=== PATIENT | female | born 1965 | race Caucasian/White ===

== ENCOUNTER 2018-03-12 13:18 | Emergency (ER) | payer SELFPAY ==
[~2018-03-12 13:18] MED LIST: Lidocaine 1% w/Epinephrine 1:100K 30 ML VIAL ONE; Sterile Water Irrigation 250 ML BOT ONE
== END 2018-03-12 15:14 | disposition home or self-care (01) ==
LOC: MADERS 13:18
DX: L02.412 Cutaneous abscess of left axilla (principal); I10 Essential (primary) hypertension; F41.9 Anxiety disorder, unspecified; F31.9 Bipolar disorder, unspecified; F17.210 Nicotine dependence, cigarettes, uncomplicated
CPT/HCPCS: 10061; J2001

== ENCOUNTER 2018-10-27 07:13 | Emergency (ER) | payer SELFPAY ==
[2018-10-27] MEDS ORDERED: Ibuprofen 800 MG TAB ONE (08:13)
--- NOTE | 2018-10-27 09:23 | RAD ---
RIGHT SHOULDER 3 VIEWS: Date: 10/27/18 HISTORY: Shoulder injury. FINDINGS: No evidence of fracture or dislocation. AC joint appears normally aligned. IMPRESSION: No acute findings. POS: OFF
== END 2018-10-27 08:35 | disposition home or self-care (01) ==
LOC: MADERS 07:13
DX: S46.021A Laceration of muscle(s) and tendon(s) of the rotator cuff of right shoulder, initial encounter (principal); I10 Essential (primary) hypertension; F41.9 Anxiety disorder, unspecified; F31.9 Bipolar disorder, unspecified; F17.210 Nicotine dependence, cigarettes, uncomplicated; V18.0XXA Pedal cycle driver injured in noncollision transport accident in nontraffic accident, initial encounter

== ENCOUNTER 2019-01-05 11:47 | Emergency (ER) | payer SELFPAY ==
[2019-01-05] MEDS ORDERED: Aspirin Chewable 81 MG TAB ONE (12:20)
[2019-01-05] MEDS ORDERED: methylPREDNISolone Sod Succ/PF 125 MG/2 ML VIAL ONE (12:20)
--- NOTE | 2019-01-05 12:34 | RAD ---
RADIOGRAPH CHEST 2 VIEW: DATE: 01/05/2019 HISTORY: 53-year-old female with cough FINDINGS: The thoracic aorta is tortuous and ectatic. There is no evidence of airspace density, pulmonary edema , or pneumothorax. There is no cardiomegaly or pleural effusion. IMPRESSION: 1) No acute cardiopulmonary findings. 2) ectasia of thoracic aorta.
[2019-01-05 12:41] LABS: #Eosinphils 0.1 thou/uL (0.0-0.7); #Lymphocytes 1.5 thou/uL (1.20-3.40); #Monocytes 0.4 thou/uL (0.11-0.59); #Neutrophils 6.3 thou/uL (1.40-6.50); %Basophils 0.4 % (0.0-1.0); %Eosinophils 0.9 % (0.0-10.0); %Lymphocytes 17.6 % (21.0-51.0); %Monocytes 5.3 % (0.0-10.0); %Neutrophils 75.8 % (42.0-75.0); Hemoglobin 14.3 g/dL (12.0-16.0); Mean Corpuscular HGB CONC 33.7 g/dL (32.0-36.0); Mean Corpuscular Hemoglobin 30.3 pg (27.0-31.0); Mean Corpuscular Volume 89.8 fL (78.0-98.0); Mean Platelet Volume 6.1 fL (7.4-10.4); Platelet Count 407 thou/uL (130-400); RBC Distribution Width 12.4 % (11.5-14.5); Red Blood Cell (RBC) Count 4.72 mill/uL (4.20-5.40); White Blood Cell (WBC) Count 8.3 thou/uL (4.8-10.8)
[2019-01-05 13:01] LABS: ALT (SGPT) 44 U/L (8-55); AST (SGOT) 27 U/L (5-34); Albumin 4.2 g/dL (3.5-5.0); Alkaline Phosphatase 92 U/L (40-150); Anion Gap 16 mmol/L (10-20); BUN (Urea Nitrogen) 21 mg/dL (9.8-20.1); Bilirubin, Total 0.4 mg/dL (0.2-1.2); CK (CPK) 95 U/L (29-168); Calc. Creatinine Clearance 0 mL/min (70-130); Calcium 8.9 mg/dL (7.8-10.44); Carbon Dioxide 22 mmol/L (22-29); Chloride 103 mmol/L (98-107); Estimated GFR-MDRD 74; Globulin 3.1 g/dL (2.4-3.5); Glucose 100 mg/dL (70-105); Lipase 12 U/L (8-78); Potassium 3.4 mmol/L (3.5-5.1); Protein, Total 7.3 g/dL (6.0-8.3); Sodium 138 mmol/L (136-145)
== END 2019-01-05 13:20 | disposition home or self-care (01) ==
LOC: MADERS 11:47
DX: J20.9 Acute bronchitis, unspecified (principal); F41.9 Anxiety disorder, unspecified; F31.9 Bipolar disorder, unspecified; F17.210 Nicotine dependence, cigarettes, uncomplicated
CPT/HCPCS: 36415; 71046; 80053; 82550; 83690; 84484; 85025; 93005; 94640; 96374; J2930; J7620

== ENCOUNTER 2019-03-13 20:20 | Emergency (ER) | payer SELFPAY ==
[~2019-03-13 20:20] MED LIST changes: -Lidocaine 1% w/Epinephrine 1:100K 30 ML VIAL ONE; +Sterile Water Irrigation 1,000 ML BOT ONE
[2019-03-13] MEDS ORDERED: Lidocaine 2% w/Epinephrine 1:200K 20 ML VIAL ONE (20:28)
[2019-03-13] MEDS ORDERED: Adacel (T-DAP) 0.5 ML SYRINGE ONE (21:12)
[2019-03-13] MEDS ORDERED: Bacitracin 1 PK ONE (21:12)
[2019-03-13] MEDS ORDERED: Ibuprofen 800 MG TAB ONE (21:22)
== END 2019-03-13 21:38 | disposition home or self-care (01) ==
LOC: MADERS 20:20
DX: S81.011A Laceration without foreign body, right knee, initial encounter (principal); S90.111A Contusion of right great toe without damage to nail, initial encounter; S40.211A Abrasion of right shoulder, initial encounter; I10 Essential (primary) hypertension; F41.9 Anxiety disorder, unspecified; F31.9 Bipolar disorder, unspecified; F17.210 Nicotine dependence, cigarettes, uncomplicated; V20.4XXA Motorcycle driver injured in collision with pedestrian or animal in traffic accident, initial encounter
CPT/HCPCS: 12002; 90471; 90715; A4217

== ENCOUNTER 2019-11-08 10:21 | Emergency (ER) | payer SELFPAY ==
[~2019-11-08 10:21] MED LIST changes: +Iopamidol 370 76% 100 ML VIAL ONE; -Sterile Water Irrigation 1,000 ML BOT ONE; -Sterile Water Irrigation 250 ML BOT ONE
[2019-11-08] MEDS ORDERED: Ketorolac Tromethamine 30 MG/ML VIAL ONE (10:34)
[2019-11-08 10:55] LABS: Bilirubin Negative (Negative); Blood, Urine Negative (Negative); Clarity Hazy (Clear); Glucose, Urine (Dipstick) Negative (Negative); Leukocyte Negative (Negative); Nitrite Negative (Negative); Protein, Urine (Dipstick) 100 mg/dL (Neg-Trace); Urobilinogen 0.2 mg/dL (Less than 2)
[2019-11-08 10:57] LABS: Bacteria/HPF Rare-Few HPF (None Seen); RBC/HPF None Seen HPF (0-3); WBC/HPF 0-3 HPF (0-3)
[2019-11-08 11:00] LABS: #Basophils 0.1 thou/uL (0.0-0.2); #Lymphocytes 1.8 thou/uL (1.20-3.40); #Monocytes 0.5 thou/uL (0.11-0.59); #Neutrophils 7.3 thou/uL (1.40-6.50); %Basophils 0.8 % (0.0-1.0); %Eosinophils 0.3 % (0.0-10.0); %Lymphocytes 18.8 % (21.0-51.0); %Monocytes 4.6 % (0.0-10.0); %Neutrophils 75.5 % (42.0-75.0); Mean Corpuscular HGB CONC 33.4 g/dL (32.0-36.0); Mean Corpuscular Hemoglobin 31.1 pg (27.0-31.0); Mean Corpuscular Volume 93.1 fL (78.0-98.0); Mean Platelet Volume 6.9 fL (7.4-10.4); Platelet Count 418 thou/uL (130-400); RBC Distribution Width 11.9 % (11.5-14.5); Red Blood Cell (RBC) Count 4.51 mill/uL (4.20-5.40); White Blood Cell (WBC) Count 9.7 thou/uL (4.8-10.8)
[2019-11-08 11:05] LABS: Amphetamine Not Detected (NotDetected); Barbiturates Screen Not Detected (NotDetected); Benzodiazepine Screen Not Detected (NotDetected); Cocaine Metabolite Screen Not Detected (NotDetected); Medtox Control Line Valid? VALID (VALID); Methadone Not Detected (NotDetected); Methamphetamine Not Detected (NotDetected); Opiate Screen Detected (NotDetected); Oxycodone Screen Not Detected (NotDetected); Phencyclidine (PCP) Not Detected (NotDetected); THC/Cannabinoid Screen Not Detected (NotDetected); Tricyclic Screen Not Detected (NotDetected)
[2019-11-08 11:16] LABS: ALT (SGPT) 43 U/L (8-55); AST (SGOT) 35 U/L (5-34); Albumin 4.1 g/dL (3.5-5.0); Alkaline Phosphatase 71 U/L (40-110); Anion Gap 15 mmol/L (10-20); BUN (Urea Nitrogen) 26 mg/dL (9.8-20.1); Bilirubin, Total 0.3 mg/dL (0.2-1.2); CK (CPK) 76 U/L (29-168); Calc. Creatinine Clearance 0 mL/min (70-130); Calcium 7.8 mg/dL (7.8-10.44); Carbon Dioxide 21 mmol/L (22-29); Chloride 107 mmol/L (98-107); Estimated GFR-MDRD 85; Globulin 2.5 g/dL (2.4-3.5); Glucose 114 mg/dL (70-105); Lipase 23 U/L (8-78); Potassium 3.6 mmol/L (3.5-5.1); Protein, Total 6.6 g/dL (6.0-8.3); Sodium 139 mmol/L (136-145)
--- NOTE | 2019-11-08 11:31 | ULT ---
ULTRASOUND ABDOMEN LIMITED: (RIGHT UPPER QUADRANT) DATE: 11/08/2019 HISTORY: 54-year-old female with right upper quadrant abdominal pain with nausea and vomiting FINDINGS: Gallbladder:Tiny nonshadowing, apparently immobile 4 or 5 mm focus in proximal body of the gallbladde r. No definite gallstones. Normal wall thickness. No pericholecystic fluid or excessive luminal distention. Common duct: Not imaged. (Measured structure is a branch of the hepatic duct). Liver:Normal size and echogenicity Pancreas:No sonographic abnormality identified Right kidney:No hydronephrosis IMPRESSION: 1. Tiny gallbladder polyp. 2. No evidence of acute cholecystitis. No definitive cholelithiasis identified.
[2019-11-08] MEDS ORDERED: Ondansetron PF 4 MG/2 ML Vial ONE (12:50)
--- NOTE | 2019-11-08 13:10 | CT ---
CT ABDOMEN AND PELVIS WITH IV CONTRAST: 11/08/19 HISTORY: Abdominal pain, right upper quadrant pain. COMPARISON: 04/17/19. 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 The calcified granuloma in the right lung base i s again seen. Right lower lobe is again seen. No calcified gallstones are seen. The liver, spleen, pa ncreas, and adrenal glands are normal. Bilateral renal cysts are again seen. The 2 mm calculus in th e inferior pole of the right kidney is again seen on the coronal reconstructions. No free air, free fluid or lymphadenopathies noted in the abdomen or pelvis. There are vascular calci fications without evidence of aneurysmal dilatation of the abdominal aorta. Retro-aortic left renal v ein is again seen. There are degenerative changes in the spine. The small bowel loops are not abnormally dilated. An abnormal appendix is not visualized. IMPRESSION: No evidence of acute process. POS: [facility]
== END 2019-11-08 13:20 | disposition home or self-care (01) ==
LOC: MADERS 10:21
DX: R10.11 Right upper quadrant pain (principal); I10 Essential (primary) hypertension; F41.9 Anxiety disorder, unspecified; F31.9 Bipolar disorder, unspecified; F17.210 Nicotine dependence, cigarettes, uncomplicated
CPT/HCPCS: 36415; 74177; 76705; 80053; 80306; 81003; 81015; 82550; 83690; 84484; 85025; 93005; 96374; 96375; J1885; J2405; Q9967